=== PATIENT | female | born 1985 | race Caucasian/White ===

== ENCOUNTER 2022-08-29 22:53 | Emergency (ER) | payer SELFPAY ==
[~2022-08-29] VITALS: Ht 162.6 cm; Wt 76.0 kg
[2022-08-29 23:00] VITALS: BP 134/96
== END 2022-08-30 01:25 | disposition home or self-care (01) ==
LOC: ER 22:53
DX: T51.91XA Toxic effect of unspecified alcohol, accidental (unintentional), initial encounter (principal); Y92.9 Unspecified place or not applicable; R41.82 Altered mental status, unspecified
CPT/HCPCS: 99283